=== PATIENT | female | born 1975 | race Caucasian/White ===

== ENCOUNTER 2020-12-29 20:29 | Emergency (ER) | payer BC, OTHER ==
[2020-12-29] MEDS ORDERED: Diphtheria,Pertussis(Acell),Tetanus Vaccine 0.5 ML Syringe IM ONE (20:50)
[2020-12-29] MEDS ORDERED: Bacitracin Oint 1 GM U/D Packet TOP ONE (20:50)
--- NOTE | 2020-12-29 21:27 | EDM.PDOC ---
ED HPI GENERAL MEDICAL PROBLEM - General Chief Complaint: Laceration Stated Complaint: CUT WRIST WITH PRUNERS Time Seen by Provider: 12/29/20 20:46 Source of Information: Reports: Patient History Limitations: Reports: No Limitations - History of Present Illness INITIAL COMMENTS - FREE TEXT/NARRATIVE: chief complaint: laceration of wrist - left This is a 45 year old female present to the ER for evaluation of cut to the left wrist. Prior to arrival was using a new pruning she dropped it and it somehow cut her wrist. no other injuries noted. does not remember when her last Tetanus was. Onset: Today Duration: Hour(s): Location: Reports: Upper Extremity, Left (left anterior wrist) Quality: Reports: Burning Severity: Mild Improves with: Reports: Immobilization (and bandage) Worsens with: Reports: Movement Context: Reports: Other (working in yard) Associated Symptoms: Reports: No Other Symptoms Treatments OUTPATIENT CODING SPECIALIST: Reports: Dressing(s) Left Wrist Pain Score (Numeric/FACES): 3 - Related Data Allergies Allergy/AdvReac Type Severity Reaction Status Date / Time No Known Allergies Allergy Verified 12/29/20 20:46 Home Meds: Home Meds Levothyroxine Sodium [Levothyroxine] 137 mcg PO DAILY 12/29/20 [History] Losartan [Cozaar] 50 mg PO DAILY 12/29/20 [History] Past Medical History HEENT History: Reports: None Cardiovascular History: Reports: Hypertension Respiratory History: Reports: None Gastrointestinal History: Reports: None Genitourinary History: Reports: None BIOLOGICAL SCIENCE TECHNICIAN History: Reports: None Musculoskeletal History: Reports: Gout Neurological History: Reports: None Psychiatric History: Reports: None Endocrine/Metabolic History: Reports: Hypothyroidism Hematologic History: Reports: None Immunologic History: Reports: None Oncologic (Cancer) History: Reports: None Dermatologic History: Reports: None - Infectious Disease History Infectious Disease History: Reports: Chicken Pox - Past Surgical History HEENT Surgical History: Reports: None GI Surgical History: Reports: None Female Surgical History: Reports: None Musculoskeletal Surgical History: Reports: None Social & Family History - Tobacco Use Tobacco Use Status *Q: Never Tobacco User - Caffeine Use Caffeine Use: Reports: Soda - Recreational Drug Use Recreational Drug Use: No - Living Situation & Occupation Living situation: Reports: with Significant Other 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 Lives with her SO in [place], [place].) ED ROS GENERAL - Review of Systems Review Of Systems: See Below Constitutional: Reports: No Symptoms HEENT: Reports: No Symptoms Musculoskeletal: Reports: Other (left werist pain) Skin: Reports: Wound Neurological: Reports: No Symptoms Psychiatric: Reports: No Symptoms Hematologic/Lymphatic: Reports: No Symptoms Immunologic: Reports: No Symptoms ED EXAM, SKIN/RASH Exam: See Below Exam Limited By: No Limitations General Appearance: Alert, WD/WN, No Apparent Distress, Other (neat and well groomed, pleasant) Head: Atraumatic, Normocephalic Neck: Normal Inspection Respiratory/Chest: No Respiratory Distress Peripheral Pulses: 2+: Radial (L), Radial (R) Extremities: Normal Range of Motion, Normal Capillary Refill, Other (laceration noted to the left wrist) Neurological: Alert, Oriented, CN II-XII Intact, Normal Cognition, Normal Gait, Normal Reflexes, No Motor/Sensory Deficits Psychiatric: Normal Affect, Normal Mood Skin: Warm, Wound/Incision (left wrist) Location, Skin: Upper Extremity, Left Characteristics: Linear Associated features: Tenderness Lymphatic: No Adenopathy ED SKIN PROCEDURES - Laceration/Wound Repair Left Anterior Wrist Appearance: Subcutaneous, Linear, Clean Distal NVT: Neuro & Vascular Intact, No Tendon Injury Anesthetic Type: Local Local Anesthesia - Lidocaine (Xylocaine): 1% Plain Local Anesthetic Volume: 3cc Skin Prep: Chlorhexidine (Hibiciens), Saline Saline Irrigation (cc's): 40 Exploration/Debridement/Repair: In a Bloodless Field, Explored to Base Closed with: Sutures Lac/Wound length In cm: 2.2 Suture Size: 4-0 # of Sutures: 7 Suture Type: Prolene Sterile Dressing Applied: Nurse Tetanus Status Addressed: Other (given Tdap) Complications: No Course - Vital Signs Last Recorded V/S: Last Vital Signs Temp 98.3 F 12/29/20 20:40 Pulse 89 12/29/20 20:40 Resp 16 12/29/20 20:40 BP 152/93 H 12/29/20 20:40 Pulse Ox 97 12/29/20 20:40 - Orders/Labs/Meds Orders: Active Orders 24 hr Category Date Time Status Vaccines to be Administered [RC] PER UNIT ROUTINE Care 12/29/20 20:51 Active Meds: Medications Discontinued Medications Generic Name Dose Route Start Last Admin Trade Name Freq PRN Reason Stop Dose Admin Bacitracin 1 dose 12/29/20 20:50 12/29/20 20:55 Bacitracin Oint 1 Gm U/D Packet TOP 12/29/20 20:51 1 dose ONETIME ONE Administration Diphtheria/Tetanus/Acell Pertussis 0.5 ml 12/29/20 20:50 12/29/20 20:55 Diphtheria,Pertussis(Acell),Tetanus Vaccine 0.5 Ml Syringe IM 12/29/20 20:51 0.5 ml .ONCE ONE Administration Lidocaine HCl 5 ml 12/29/20 20:49 12/29/20 20:55 Lidocaine 1% 5 Ml Sdv INJECT 12/29/20 20:50 5 ml ONETIME ONE Administration - Re-Assessments/Exams Free Text/Narrative Re-Assessment/Exam: 12/29/20 21:39 laceration repair with sutures x7 Tdap given left deltoid bandage applied by home health care social worker and suture removal discussed Ms. Lawson agrees with plan of care Departure - Departure Time of Disposition: 21:41 Disposition: Home, Self-Care 01 Condition: Good Clinical Impression: Laceration of wrist without complication Qualifiers: Encounter type: initial encounter Laterality: left Qualified Code(s): S61.512A - Laceration without foreign body of left wrist, initial encounter - Discharge Information *PRESCRIPTION DRUG MONITORING PROGRAM REVIEWED*: Not Applicable *COPY OF PRESCRIPTION DRUG MONITORING REPORT IN PATIENT DINO: Not Applicable Instructions: Laceration Care, Adult, Laceration Care, Adult, [id number], VIS, Tetanus, Diphtheria, and Pertussis (Tdap) - CDC (10/08/2019) Referrals: Nenita Coronado PA-C [Primary Care Provider] - Forms: ED Department Discharge Care Plan Goals: Laceration of left wrist -Sutures x7- removed in 7 to 10 days -apply bacitracin ointment to wound daily for 3 daily -monitor for signs of infection- increased redness, pain, drainage or not improved -go ER or Urgent Care for wound check -Return to ER for any concerns or not improved Sepsis Event Note (ED) - Evaluation Sepsis Screening Result: No Definite Risk - Focused Exam Vital Signs: Vital Signs Temp Pulse Resp BP Pulse Ox 12/29/20 20:40 98.3 F 89 16 152/93 H 97 - Problem List & Annotations (1) Laceration of wrist without complication SNOMED Code(s): 677559339 Code(s): S61.519A - LACERATION WITHOUT FOREIGN BODY OF UNSP WRIST, INIT ENCNTR Status: Acute Priority: High Current Visit: Yes Qualifiers: Encounter type: initial encounter Laterality: left Qualified Code(s): S61.512A - Laceration without foreign body of left wrist, initial encounter (2) Tetanus toxoid vaccination administered at current visit SNOMED Code(s): 814663899982827, [id number], [id number] Code(s): Z23 - ENCOUNTER FOR IMMUNIZATION Status: Acute Priority: High Current Visit: Yes - Problem List Review Problem List Initiated/Reviewed/Updated: Yes - My Orders Last 24 Hours: My Active Orders 12/29/20 20:51 Vaccines to be Administered [RC] PER UNIT ROUTINE - Assessment/Plan Last 24 Hours: My Active Orders 12/29/20 20:51 Vaccines to be Administered [RC] PER UNIT ROUTINE Plan: Laceration of left wrist -Tdap given in ER -Sutures x7- removed in 7 to 10 days -apply bacitracin ointment to wound daily for 3 daily -monitor for signs of infection- increased redness, pain, drainage or not improved -go ER or Urgent Care for wound check -Return to ER for any concerns or not improved
== END 2020-12-29 21:40 | disposition home or self-care (01) ==
LOC: JP.ED 20:29
DX: S61.512A Laceration without foreign body of left wrist, initial encounter (principal); I10 Essential (primary) hypertension; E03.9 Hypothyroidism, unspecified; Z23 Encounter for immunization; W20.8XXA Other cause of strike by thrown, projected or falling object, initial encounter; W26.8XXA Contact with other sharp object(s), not elsewhere classified, initial encounter
CPT/HCPCS: 12001; 90471; 90715; 99282-25

== ENCOUNTER 2022-06-18 16:43 | Emergency (ER) | payer OTHER ==
[2022-06-18 18:00] LABS: TROPONIN I HIGH SENSITIVITY 5.8 pg/mL (<=60.3)
== END 2022-06-18 18:12 | disposition home or self-care (01) ==
LOC: JP.ED 16:43
DX: R00.2 Palpitations (principal); I10 Essential (primary) hypertension; Z88.0 Allergy status to penicillin; Z79.899 Other long term (current) drug therapy
CPT/HCPCS: 36415; 71046; 71046-26; 80048; 83735; 84484; 85025; 99285

== ENCOUNTER 2022-08-08 06:32 | Day surgery (SDC) | payer OTHER ==
[2022-08-08] MEDS ORDERED: Lactated Ringers 1,000 ML IV SCH (07:00)
[2022-08-08] MEDS ORDERED: Midazolam 1 MG/ML 2 ML SDV ONE (07:19)
[2022-08-08] MEDS ORDERED: fentaNYL 50 MCG/ML SDV ONE (07:19)
[2022-08-08] MEDS ORDERED: Propofol 200 MG/20 ML SDV ONE ×2 (07:20→07:42)
== END 2022-08-08 09:06 | disposition home or self-care (01) ==
LOC: JP.SDS 06:32
PROVIDERS: ATTEND Family Medicine
DX: Z12.11 Encounter for screening for malignant neoplasm of colon (principal); K21.00 Gastro-esophageal reflux disease with esophagitis, without bleeding; K31.7 Polyp of stomach and duodenum; K29.70 Gastritis, unspecified, without bleeding; K29.50 Unspecified chronic gastritis without bleeding; I10 Essential (primary) hypertension; E03.9 Hypothyroidism, unspecified; E66.9 Obesity, unspecified; Z79.899 Other long term (current) drug therapy
CPT/HCPCS: 43239; 45378; 81025; J2250; J2704; J3010; J7120

== ENCOUNTER 2022-08-25 04:25 | Emergency (ER) | payer OTHER ==
[2022-08-25] MEDS ORDERED: HYDROmorphone 1 MG/ML Syringe IM ONE (05:20)
== END 2022-08-25 05:50 | disposition home or self-care (01) ==
LOC: JP.ED 04:25
DX: G89.18 Other acute postprocedural pain (principal); E03.9 Hypothyroidism, unspecified; I10 Essential (primary) hypertension; K21.9 Gastro-esophageal reflux disease without esophagitis; Z88.0 Allergy status to penicillin; Z79.899 Other long term (current) drug therapy; Z86.16 Personal history of COVID-19
CPT/HCPCS: 96372; 99283; J1170

== ENCOUNTER 2023-05-17 02:31 | Emergency (ER) | payer OTHER ==
[2023-05-17] MEDS ORDERED: oxyCODONE 5 MG Tab PO ONE (03:13)
[2023-05-17 03:21] LABS: BASOPHILS ABSOLUTE AUTO 0.04 K/uL (0.00-0.10); BASOPHILS PERCENT AUTO 0.5 % (0.1-1.3); EOSINOPHILS ABSOLUTE AUTO 0.15 K/uL (0.00-0.40); EOSINOPHILS PERCENT AUTO 1.8 % (0.0-5.4); HEMATOCRIT 41.8 % (34.3-46.0); IMMATURE GRAN ABSOLUTE AUTO 0.03 K/uL (0.00-0.23); IMMATURE GRAN PERCENT AUTO 0.4 % (0.0-0.7); LYMPHOCYTES ABSOLUTE AUTO 1.56 K/uL (0.8-3.3); LYMPHOCYTES PERCENT AUTO 18.4 % (11.4-47.7); MEAN CORPUSCULAR HGB CONC 33.5 g/dL (31.6-35.5); MEAN CORPUSCULAR VOLUME 89.7 fL (81.4-99.0); MONOCYTES ABSOLUTE AUTO 0.57 K/uL (0.20-0.90); MONOCYTES PERCENT AUTO 6.7 % (3.3-12.6); NEUTROPHILS ABSOLUTE AUTO 6.11 K/uL (1.0-7.6); NEUTROPHILS PERCENT AUTO 72.2 % (40.0-78.1); PLATELET COUNT,PLT 249 K/uL (130-375); RED BLOOD CELL COUNT 4.66 M/uL (3.77-5.24); WHITE BLOOD CELL COUNT,WBC 8.5 K/uL (3.2-11.0)
[2023-05-17 03:37] LABS: CALCIUM 8.9 mg/dL (8.5-10.1); CREATININE 0.9 mg/dL (0.6-1.0); EST CRCL DRUG DOSING (CG) 77.65 mL/min; POTASSIUM,K 4.6 mmol/L (3.6-5.2)
[2023-05-17 03:43] LABS: ANION GAP 12.6 mmol/L (5.0-14.0)
== END 2023-05-17 04:21 | disposition home or self-care (01) ==
LOC: JP.ED 02:31
DX: I83.811 Varicose veins of right lower extremity with pain (principal); L03.115 Cellulitis of right lower limb; I10 Essential (primary) hypertension; K21.9 Gastro-esophageal reflux disease without esophagitis; E03.9 Hypothyroidism, unspecified; R79.1 Abnormal coagulation profile; Z86.16 Personal history of COVID-19; Z90.49 Acquired absence of other specified parts of digestive tract; Z88.0 Allergy status to penicillin; Z79.899 Other long term (current) drug therapy
CPT/HCPCS: 36415; 73562-26-RT; 73562-RT; 80048; 85025; 85379; 86140; 93971-26; 93971-RT; 99283; A9270-GY